=== PATIENT | female | born 1980 | race American Indian/Alaskan Native ===

== ENCOUNTER 2017-04-17 19:50 | Emergency (ER) | payer MEDICARE ==
[2017-04-17 21:14] LABS: Basophils % (Auto) 0.5 % (0.0-1.8); Eosinophils % (Auto) 1.6 % (0.0-4.3); Hematocrit 33.2 % (30.3-42.9); Hemoglobin 10.3 gm/dl (10.1-14.3); Mean Corpuscular HGB Conc 31 % (30-34); Mean Corpuscular Volume 78 fl (79-97); Platelet Count 367 K/mm3 (140-440); Red Blood Count 4.27 M/mm3 (3.65-5.03); Red Cell Distribution Width 16.7 % (13.2-15.2); White Blood Count 5.7 K/mm3 (4.5-11.0)
[2017-04-17 21:15] LABS: Mean Corpuscular Hemoglobin 24 pg (28-32)
[2017-04-17 21:40] LABS: Alanine Aminotransferase 18 units/L (7-56); Albumin 4.3 g/dL (3.9-5); Albumin/Globulin Ratio 1.5 %; Alkaline Phosphatase 60 units/L (35-129); Anion Gap 16 mmol/L; BUN/Creatinine Ratio 13.33; Blood Urea Nitrogen 8 mg/dL (7-17); Calcium 9.2 mg/dL (8.4-10.2); Carbon Dioxide 24 mmol/L (22-30); Chloride 101.7 mmol/L (98-107); Glucose 105 mg/dL (65-100); Lipase 56 units/L (13-60); Potassium 4.2 mmol/L (3.6-5.0); Sodium 137 mmol/L (137-145); Total Protein 7.2 g/dL (6.3-8.2)
[2017-04-17 22:09] LABS: Bacteria,Urine 2+ /HPF (Negative); Bilirubin,Urine NEG (Negative); Blood,Urine NEG (Negative); Ketones,Urine NEG (Negative); Leukocyte Esterase,Urine SM (Negative); Mucus,Urine 3+ /HPF; Nitrite,Urine NEG (Negative); Urobilinogen,Urine < 2.0 mg/dL (<2.0)
[2017-04-18 05:42] VITALS: BP 139/68
--- NOTE | 2017-04-18 06:29 | Emergency Department Report ---
HPI - General Chief Complaint: Abdominal Pain Time Seen by Provider: 04/18/17 06:17 - [facility] HPI: Room 20 The patient is a 37-year-old female presenting with a chief complaint of abdominal pain. The patient states she's had suprapubic cramping intermittently for the past 2 days. Patient missed difficulty urinating and mild discomfort with urination. Patient denies hematuria or vaginal discharge. The patient states she took a Naprosyn which did help the pain temporarily. Patient denies any history of fever. Patient states her last menstrual cycle occurred approximately 5 days ago and was within normal limits. Patient states she currently feels better Location: Suprapubic Duration: 2 days Quality: Cramping Severity: Currently 0/10 Modifying factors: [see above] Context: [see above] Mode of transportation: Unknown ED Past Medical Hx - Past Medical History Previous Medical History?: No - Surgical History Past Surgical History?: No - Family History Family history: no significant - Social History Smoking Status: Current Some Day Smoker Substance Use Type: None (denies illicit drug use), Alcohol (rarely) - Medications Home Medications: Home Medications Medication Instructions Recorded Confirmed Last Taken Type Sulfamethoxazole/Trimethoprim 1 each PO BID #14 tablet 04/18/17 Unknown Rx [Bactrim DS TAB] traMADol [Ultram] 50 mg PO Q6HR PRN #10 tablet 04/18/17 Unknown Rx ED Review of Systems ROS: Stated complaint: BLADDER INFECTION Other details as noted in HPI Comment: All other systems reviewed and negative Constitutional: denies: chills, fever Eyes: denies: eye pain, eye discharge, vision change ENT: denies: ear pain, throat pain Respiratory: denies: cough, shortness of breath, wheezing Cardiovascular: denies: chest pain, palpitations Endocrine: no symptoms reported Gastrointestinal: abdominal pain Genitourinary: dysuria. denies: frequency, hematuria, discharge, abnormal menses Musculoskeletal: denies: back pain, joint swelling, arthralgia Skin: denies: rash, lesions Neurological: denies: headache, weakness, paresthesias Psychiatric: denies: anxiety, depression Hematological/Lymphatic: denies: easy bleeding, easy bruising Physical Exam - Physical Exam Vital Signs: Vital Signs 04/17/17 04/18/17 04/18/17 20:32 02:30 04:37 Temperature 98.7 F 98.5 F 98.3 F Pulse Rate 87 66 77 Respiratory 18 18 20 Rate Blood Pressure 132/75 115/69 Blood Pressure 139/68 [Left] O2 Sat by Pulse 100 0 L 99 Oximetry Physical Exam: GENERAL: The patient is well-developed well-nourished female lying on stretcher not appearing to be in acute distress. [] HEENT: Normocephalic. Atraumatic. Extraocular motions are intact. Patient has moist mucous membranes. NECK: Supple. Trachea midline CHEST/LUNGS: Clear to auscultation. There is no respiratory distress noted. HEART/CARDIOVASCULAR: Regular. There is no tachycardia. There is no gallop rub or murmur. ABDOMEN: Abdomen is soft, with mild discomfort to palpation in the pubic region. Patient has normal bowel sounds. There is no abdominal distention. There is no rebound or guarding SKIN: There is no rash. There is no edema. There is no diaphoresis. NEURO: The patient is awake, alert, and oriented. The patient is cooperative. The patient has normal speech and gait. MUSCULOSKELETAL: There is no CVA tenderness. There is no evidence of acute injury. ED Course Vital Signs 04/17/17 04/18/17 04/18/17 20:32 02:30 04:37 Temperature 98.7 F 98.5 F 98.3 F Pulse Rate 87 66 77 Respiratory 18 18 20 Rate Blood Pressure 132/75 115/69 Blood Pressure 139/68 [Left] O2 Sat by Pulse 100 0 L 99 Oximetry ED Medical Decision Making - Lab Data Result diagrams: 04/17/17 20:54 04/17/17 20:54 Laboratory Tests 04/17/17 04/17/17 04/17/17 20:54 20:54 20:54 WBC 5.7 RBC 4.27 Hgb 10.3 Hct 33.2 MCV 78 L MCH 24 L MCHC 31 RDW 16.7 H Plt Count 367 Lymph % (Auto) 38.9 H Frontier % (Auto) 8.6 H Eos % (Auto) 1.6 Baso % (Auto) 0.5 Lymph # 2.2 Frontier # 0.5 Eos # 0.1 Baso # 0.0 Seg Neutrophils % 50.4 Seg Neutrophils # 2.9 Sodium 137 Potassium 4.2 Chloride 101.7 Carbon Dioxide 24 Anion Gap 16 BUN 8 Creatinine 0.6 L Estimated GFR > 60 BUN/Creatinine Ratio 13.33 Glucose 105 H Calcium 9.2 Total Bilirubin 0.20 AST 13 ALT 18 Alkaline Phosphatase 60 Total Protein 7.2 Albumin 4.3 Albumin/Globulin Ratio 1.5 Lipase 56 HCG, Qual Negative Urine Color Urine Turbidity Urine pH Ur Specific [place] Urine Protein Urine Glucose (UA) Urine Ketones Urine Blood Urine Nitrite Urine Bilirubin Urine Urobilinogen Ur Leukocyte Esterase Urine WBC (Auto) Urine RBC (Auto) U Epithel Cells (Auto) Urine Bacteria (Auto) Calcium Oxalate Crystal Urine Mucus 04/17/17 21:45 WBC RBC Hgb Hct MCV MCH MCHC RDW Plt Count Lymph % (Auto) Frontier % (Auto) Eos % (Auto) Baso % (Auto) Lymph # Frontier # Eos # Baso # Seg Neutrophils % Seg Neutrophils # Sodium Potassium Chloride Carbon Dioxide Anion Gap BUN Creatinine Estimated GFR BUN/Creatinine Ratio Glucose Calcium Total Bilirubin AST ALT Alkaline Phosphatase Total Protein Albumin Albumin/Globulin Ratio Lipase HCG, Qual Urine Color Yellow Urine Turbidity Turbid Urine pH 5.0 Ur Specific [place] 1.033 H Urine Protein 30 mg/dl Urine Glucose (UA) Neg Urine Ketones Neg Urine Blood Neg Urine Nitrite Neg Urine Bilirubin Neg Urine Urobilinogen < 2.0 Ur Leukocyte Esterase Sm Urine WBC (Auto) 14.0 H Urine RBC (Auto) 28.0 U Epithel Cells (Auto) 103.0 H Urine Bacteria (Auto) 2+ Calcium Oxalate Crystal 1+ Urine Mucus 3+ - Differential Diagnosis UTI, ovarian cyst, uterine fibroids, dysmenorrhea Critical care attestation.: If time is entered above; I have spent that time in minutes in the direct care of this critically ill patient, excluding procedure time. ED Disposition Clinical Impression: UTI (urinary tract infection) Disposition: DC-01 TO HOME OR SELFCARE Is pt being admited?: No Does the pt Need Aspirin: No Condition: Stable Instructions: Abdominal Pain (ED) Additional Instructions: Return to the emergency department immediately should you develop worsening symptoms, fever, inability to tolerate food or liquid or any other concerns. Prescriptions: Sulfamethoxazole/Trimethoprim [Bactrim DS TAB] 1 each PO BID #14 tablet traMADol [Ultram] 50 mg PO Q6HR PRN #10 tablet PRN Reason: Pain Referrals: SHAYY HIRSCH MD [Primary Care Provider] - 3-5 Days Time of Disposition: 06:29
== END 2017-04-18 06:37 | disposition home or self-care (01) ==
LOC: ED 19:50
DX: N39.0 Urinary tract infection, site not specified (principal); F17.200 Nicotine dependence, unspecified, uncomplicated
CPT/HCPCS: 36415; 80053; 81001; 83690; 84703; 85025; 99283